=== PATIENT | female | born 1945 | race Caucasian/White ===

== ENCOUNTER 2018-08-19 13:34 | Emergency (ER) | payer MEDICARE ==
[~2018-08-19] VITALS: Ht 160 cm; Wt 52.3 kg
[~2018-08-19 13:34] MED LIST: ASPIRIN E.C. 8181 MG PO; CALCIUM + D 6001 TA1 PO; DOXYCYCLINE 10100 MG PO; FERROUS SU325 MG/TAB PO; FOLIC ACID 40400 MCG PO; LASIX 20MG TABL20 MG PO; LIPITOR 10MG10 MG PO; LOPRESSOR 225 MG/TAB PO; NORCO 325 MG-51 TAB PO; OMNICEF 300MG300 MG PO; PRILOSEC 20MG20 MG PO; TYLENOL 325MG325 MG PO; TYLENOL EXTRA500 M1 PO; VENTOLIN0.09 MG IH; VITAMIN C PURE500 MG PO; VITAMIN C500 MG PO; ZESTRIL2.5 MG PO
[2018-08-19 13:40] VITALS: TEMP 99.6
[2018-08-19] MEDS ORDERED: NORCO 325 MG-51 TAB PO (19:03)
[2018-08-19 19:54] VITALS: BP 105/87; PULSE 76
== END 2018-08-19 19:54 | disposition home or self-care (01) ==
LOC: COL.ER 13:34
DX: S72.111A Displaced fracture of greater trochanter of right femur, initial encounter for closed fracture (principal); F17.210 Nicotine dependence, cigarettes, uncomplicated; Z79.82 Long term (current) use of aspirin; Z96.653 Presence of artificial knee joint, bilateral; W18.30XA Fall on same level, unspecified, initial encounter

== ENCOUNTER 2020-02-10 11:47 | Inpatient (IN) | payer MEDICARE ==
[~2020-02-10] VITALS: Ht 162.6 cm; Wt 49.9 kg
[2020-02-10 12:40] LABS: BASO # 0.1 (0.0-0.2); BASO % 0.7 % (0.0-2.0); EOS % 0.1 % (0-4.0); GRAN # 6.1 (1.4-6.5); GRAN % 80.4 % (42.2-75.2); HEMOGLOBIN 13.2 g/dl (12.5-16.0); LYMPH # 0.9 (1.2-3.4); LYMPH % 11.5 % (20.0-51.0); MEAN CELL VOLUME 93 fl (80.0-100.0); MEAN CORPUSCULAR HEMOGLOBIN 31 pg (27.0-31.0); MEAN CORPUSCULAR HGB CONC 33 g/dl (33.0-37.0); MEAN PLATELET VOLUME 10.6 fl (7.4-10.4); MONO # 0.5 (0.1-0.6); MONO % 6.4 % (1.7-9.3); PLATELET COUNT 239 K/mm3 (130-400); REDCELL DISTRIBUTION WIDTH-CV 14.3 % (11.5-14.5)
[2020-02-10 12:41] LABS: INR 1.1 (0.8-3.0)
[2020-02-10 12:44] LABS: PARTIAL THROMBOPLASTIN TIME 29.5 SECONDS (26.0-37.0)
[2020-02-10 12:51] LABS: C-REACTIVE PROTEIN 0.9 mg/dL (0.0-0.9); CALCIUM 8.8 mg/dL (8.4-10.2); CREATININE, serum 0.57 (0.52-1.25); POTASSIUM 3.8 mmol/L (3.4-5.0); TOTAL PROTEIN 6.4 gm/dL (6.4-8.2)
[2020-02-10 13:00] LABS: TROPONIN-I 0.013 ng/mL (0.000-0.035)
[2020-02-10 16:06] LABS: COLLECTION METHOD CLEAN CATCH
[2020-02-10 16:23] LABS: MUCOUS Present /lpf; PH 5 (5-8); SQUAMOUS EPITHELIAL 0-2 /hpf; URINE APPEARANCE Clear; URINE BACTERIA None Seen /hpf; URINE BILIRUBIN Negative (NEGATIVE); URINE BLOOD Negative (NEGATIVE); URINE COLOR Straw; URINE GLUCOSE Negative (NEGATIVE); URINE KETONE Negative (NEGATIVE); URINE LEUKOCYTE ESTERASE Negative (NEGATIVE); URINE NITRATE Negative (NEGATIVE); URINE PROTEIN(semi-quant) Negative (NEGATIVE); URINE RBC 0-2 /hpf; URINE UROBILINOGEN Negative (NEGATIVE)
[2020-02-10 19:18] VITALS: BP 93/74; PULSE 79; TEMP 97.3
[2020-02-10 19:26] VITALS: BP 93/74; PULSE 78; TEMP 97.3
--- NOTE | 2020-02-10 19:28 | NUR ---
Initial assessments complete, Pt resting confortably in the room Pt needs met.
--- NOTE | 2020-02-10 19:30 | NUR ---
Received report from Matthew. Seen patient awake, lying in bed. She is alert, oriented and independent. She's on O2 at 2lpm via NC. She denies pain. Her right leg is more swollen than her left. Call light within reach.
[2020-02-10 20:37] VITALS: BP 79/64
--- NOTE | 2020-02-10 20:37 | NUR ---
Patient's blood pressure was low awhile ago. Rechecked her blood pressure and it was 79/64. Removed her nitroglycerin ointment paper in her chest. Did the orthostatic blood pressure and it was 147/104 in sitting position and 136/106 in standing. Patient denies dizziness, lightheadedness or difficulty of breathing. She said she feels fine and okay. Informed her that she needs to call us if she needs to go to the restroom given that she has low blood pressure right now.
[2020-02-10 20:38] VITALS: BP 147/104
[2020-02-10 20:39] VITALS: BP 136/106
--- NOTE | 2020-02-10 20:56 | NUR ---
This nurse called Surekha SPIVEY informing her of the hypotension episode and that I removed her nitrolycerin. She agreed on removing the nitroglycerin and she put an order to hold that. She said re-check again the blood pressure by mignight and update her since patient is asymptomatic now.
[2020-02-10 22:25] VITALS: BP 89/55
--- NOTE | 2020-02-10 22:25 | NUR ---
Blood pressure taken and it was 89/55. Update Surekha via phone call and says to check on again by midnight.
[2020-02-11] VITALS (10 sets, daily range): BP systolic 84–111; BP diastolic 50–74; PULSE 74–95; TEMP 97.2–98
--- NOTE | 2020-02-11 00:23 | NUR ---
This nurse called Surekha to update her that patient's blood pressure is 85/54. She said she will take a look at the patient and assess her if she needs to give her a bolus. Surekha then said to continue to monitor the patient since she's asymptomatic and she feels better with the diuresing that we're doing to her.
--- NOTE | 2020-02-11 07:30 | NUR ---
PT PLEASANT, AOX4, DENIES PAIN OR DISCOMFORT, DENIES DIZZINESS, PT VITALS REVIEWED, HELD BP MEDS AND LASIX DUE TO LOW SYSTOLIC. OTHER MEDS GIVEN, ASSESSMENT PERFORMED. BLE PITTING EDEMA PRESENT, PULSES STRONG, ON 2L NC BASELINE, NO OTHER NEEDS AT THIS TIME.
[2020-02-11 07:35] LABS: BASO % 0.7 % (0.0-2.0); EOS % 0.7 % (0-4.0); GRAN # 4.4 (1.4-6.5); GRAN % 75.2 % (42.2-75.2); HEMOGLOBIN 11.9 g/dl (12.5-16.0); LYMPH # 0.8 (1.2-3.4); LYMPH % 14.5 % (20.0-51.0); MEAN CELL VOLUME 92 fl (80.0-100.0); MEAN CORPUSCULAR HEMOGLOBIN 30 pg (27.0-31.0); MEAN CORPUSCULAR HGB CONC 33 g/dl (33.0-37.0); MEAN PLATELET VOLUME 10.3 fl (7.4-10.4); MONO # 0.5 (0.1-0.6); MONO % 8.6 % (1.7-9.3); PLATELET COUNT 198 K/mm3 (130-400); RED BLOOD COUNT 3.91 M/mm3 (4.10-5.30); REDCELL DISTRIBUTION WIDTH-CV 14.4 % (11.5-14.5)
[2020-02-11 07:37] LABS: HEMATOCRIT 35.9 % (37.0-47.0)
[2020-02-11 07:52] LABS: CALCIUM 8.3 mg/dL (8.4-10.2); CREATININE, serum 0.68 (0.52-1.25); MAGNESIUM 1.9 mg/dL (1.6-2.3)
[2020-02-11 07:57] LABS: TROPONIN-I 0.018 ng/mL (0.000-0.035)
[2020-02-11 08:13] LABS: POTASSIUM 3.7 mmol/L (3.4-5.0)
--- NOTE | 2020-02-11 14:06 | NUR ---
SW met with patient to complete intake. Patient states that she lives at home alone in [place], [place]. POC is daughter Katy [phone] [employer]. Patient stats that she does not utilize any DME and is independent with ADL's. Patient provides that her PCP is Dr. Harjinder Dinh, pharmacy is [facility], and she can afford her medications. Patient states that she would like to appoint her daughter as her DPOA-HC but would like to wait until 3 to confirm with daughter and obtain further information. Document left with patient to review. Patient provides that she does not utlize any home health services at this time and plans to return to her home upon DC. Patient states that she has not concerns about going home except she would like to get her breathing under control. SW will continue to follow.
--- NOTE | 2020-02-11 16:01 | NUR ---
oxygen inc to 5L, pt satting 88% on 2L. respiratory informed.
--- NOTE | 2020-02-11 16:18 | NUR ---
SW met with patient to complete DPOA-HC documentation. Documenation reviewed, signed and witnessed signature. Document copied for patient and original placed in chart. SW to continue to follow.
--- NOTE | 2020-02-11 16:37 | NUR ---
PT BEGAN TO HAVE DEC BP, 90 SYSTOLIC FIRST TIME, 84/55 THE SECOND TIME. PT ASYMPTOMATIC, ALERT AND TALKING, PT DENIES DIZZINESS, LASIX HELD, LEFT VOICMAIL FOR PHYSICIAN.
--- NOTE | 2020-02-11 16:51 | NUR ---
JEF REYNOLDS CONTACTED ABOUT LOW BP, ORDERED TO RECHECK IN AN HOUR AND CONTINUE TO HOLD LASIX AND BP MEDS. DR. HINDS RETURNED CALL AND SAID TO HOLD BP MEDS AND LASIX AND CONTINUE TO MONITOR.
--- NOTE | 2020-02-11 17:01 | NUR ---
PT ASYMPTOMATIC WITH HYPOTENSION. ORDERED TO RECHECK LATER, PT PLEASANT, DENIES PAIN OR DISCOMFORT, VISITOR AT BEDSIDE SOME OF SHIFT, HAS MET FREE WATER RESTRICTION, LIKES PAT, AOX4, PT CALLS WHEN SHE NEEDS TO GET UP DUE TO HYPOTENSION, O2 BACK TO 2.5L SATTING WELL. NO OTHER NEEDS.
--- NOTE | 2020-02-11 19:17 | NUR ---
Recieved report from Buffy. Seen patient awake, sitting in bed. She just finished eating her dinner. On O2 at 2lpm via NC. She denies pain. Call light within reach.
[2020-02-12] VITALS (21 sets, daily range): BP systolic 84–126; BP diastolic 37–97; PULSE 43–90; TEMP 97.4–98.5
--- NOTE | 2020-02-12 06:20 | NUR ---
Checked patient's blood pressure this morning before giving lasix. It was 126/97. No complains of pain. Call light within reach.
[2020-02-12 06:50] LABS: BASO % 0.4 % (0.0-2.0); EOS % 0.7 % (0-4.0); GRAN # 4.2 (1.4-6.5); GRAN % 73.6 % (42.2-75.2); HEMOGLOBIN 11.8 g/dl (12.5-16.0); LYMPH # 0.9 (1.2-3.4); LYMPH % 15.9 % (20.0-51.0); MEAN CELL VOLUME 92 fl (80.0-100.0); MEAN CORPUSCULAR HEMOGLOBIN 31 pg (27.0-31.0); MEAN CORPUSCULAR HGB CONC 34 g/dl (33.0-37.0); MEAN PLATELET VOLUME 10.4 fl (7.4-10.4); MONO # 0.5 (0.1-0.6); PLATELET COUNT 178 K/mm3 (130-400); RED BLOOD COUNT 3.81 M/mm3 (4.10-5.30); REDCELL DISTRIBUTION WIDTH-CV 14.2 % (11.5-14.5)
[2020-02-12 06:51] LABS: HEMATOCRIT 35.1 % (37.0-47.0)
[2020-02-12 07:04] LABS: CALCIUM 8.3 mg/dL (8.4-10.2); CREATININE, serum 0.74 (0.52-1.25); POTASSIUM 3.4 mmol/L (3.4-5.0)
--- NOTE | 2020-02-12 12:19 | NUR ---
Patient alert, denies any pain post heart cath. SBP 87/55. heart cath was accessed through right radial. site currently have compression band with 13mL. Patient resting in bed.
--- NOTE | 2020-02-12 12:57 | NUR ---
Initial visit; Patient thanked Recreation Manager for looking in on her though declined spiritual care.
--- NOTE | 2020-02-12 15:50 | NUR ---
Clarifying Plant Operator met with the patient to review the discharge plan of returning home with no services. The patient is independent and works 8 hours at week at [employer]. The patient will drive herself home. The patient's , Stevan recently . He daughter, Katy #[phone] is her support and DPOA-HC. RAFAL contacted Katy and she was in agreeance with the disharge plan. The patient is currenlty on oxygen and may need it at discharge. RAFAL collaborated the above information with the patient's nurse.
--- NOTE | 2020-02-12 17:45 | NUR ---
Patient alert and oriented. denies any pain. pyrotechnist report <20%EF. heart cath was completed, no blockage was found. heart cath was accessed through right radial. 13mL was deflated from radial compression. No bleeding or edema. Patient resting in bed.
--- NOTE | 2020-02-12 19:05 | NUR ---
Received report from [facility]. Seen patient awake, lying in bed. She is alert and oriented. Right radial incision from heart cath is covered with bandaid, clean, dry and intact. She denies pain. Call light within reach.
--- NOTE | 2020-02-12 20:15 | NUR ---
Dressing on her INT on left AC has some dry blood. Dressing was changed. Offered to patient if I can change her bed sheets and blankets now but she refused saying she might go home tomorrow so she's fine with what she has right now.
[2020-02-13] VITALS (11 sets, daily range): BP systolic 78–116; BP diastolic 5–92; PULSE 42–96; TEMP 97.4–98.6
--- NOTE | 2020-02-13 06:03 | NUR ---
Patient had uneventful night. She denies pain. Right radial site is clean, dry and intact. Call light within reach.
--- NOTE | 2020-02-13 06:34 | NUR ---
Patient's blood pressure is 95/54. Will not give Lasix as it may cause her blood pressure to go down even more.
[2020-02-13 07:02] LABS: BASO % 0.6 % (0.0-2.0); EOS # 0.1 (0.0-0.7); EOS % 0.9 % (0-4.0); GRAN # 4.8 (1.4-6.5); GRAN % 74.4 % (42.2-75.2); HEMOGLOBIN 11.8 g/dl (12.5-16.0); LYMPH # 0.9 (1.2-3.4); MEAN CELL VOLUME 91 fl (80.0-100.0); MEAN CORPUSCULAR HEMOGLOBIN 30 pg (27.0-31.0); MEAN CORPUSCULAR HGB CONC 33 g/dl (33.0-37.0); MEAN PLATELET VOLUME 10.5 fl (7.4-10.4); MONO # 0.6 (0.1-0.6); MONO % 9.8 % (1.7-9.3); PLATELET COUNT 181 K/mm3 (130-400); RED BLOOD COUNT 3.92 M/mm3 (4.10-5.30)
--- NOTE | 2020-02-13 07:05 | NUR ---
Pt alert/oriented in recliner. Telle, O2 @4L, lungs clear in upper lobes bases deminished with wheezing. No SOB noted @ rest, pt has productive cough. Rt radial dressing clean, dry, and intact. Lt a.c INT intact without redness. 2+ edema BLE. Pt denies pain.
[2020-02-13 07:06] LABS: HEMATOCRIT 35.6 % (37.0-47.0)
[2020-02-13 07:16] LABS: CALCIUM 7.9 mg/dL (8.4-10.2); CREATININE, serum 0.7 (0.52-1.25); POTASSIUM 3.5 mmol/L (3.4-5.0)
--- NOTE | 2020-02-13 09:56 | NUR ---
An exercise oximetry was ordered for the patient.
--- NOTE | 2020-02-13 12:45 | NUR ---
The patient qualifies for oxygen. Traffic Clerk met with the patient to discuss DME companies that could supply her oxygen. She chose [facility]. RAFAL faxed referral. RAFAL presented the IM form to the patient. She understood and signed the form. A copy was provided to the patient and the original was placed in the chart.
--- NOTE | 2020-02-13 17:14 | NUR ---
Patient is alert and oriented, denies any pain. RT completed exercise oximetry with patient. Patient was qualified for 2L O2 at discharge. Lasix is currently on hold because patient's serum bicarbonate is 36. patient on 2L 02 with 95%-97% oxygen saturation. Patient ambulate around with physical therapy. Per hospitalist view, Patient might be discharging on the 02/14/20.
--- NOTE | 2020-02-13 20:30 | NUR ---
Initial shift assessment done- denies pain/SOB, on 2L/nc-- pt states she is going home tomorrow, Tele on, VSS. Up in her room on her own- steady on feet
[2020-02-14 03:46] VITALS: BP 84/56; PULSE 50; TEMP 97.6
--- NOTE | 2020-02-14 05:06 | NUR ---
Quiet night- B/P remains borderline low- asymptomatic--has been resting well
[2020-02-14 06:45] LABS: BASO # 0.1 (0.0-0.2); BASO % 0.7 % (0.0-2.0); EOS # 0.1 (0.0-0.7); GRAN # 5.3 (1.4-6.5); GRAN % 72.9 % (42.2-75.2); HEMATOCRIT 38.7 % (37.0-47.0); HEMOGLOBIN 12.7 g/dl (12.5-16.0); LYMPH # 1.1 (1.2-3.4); LYMPH % 14.7 % (20.0-51.0); MEAN CELL VOLUME 92 fl (80.0-100.0); MEAN CORPUSCULAR HEMOGLOBIN 30 pg (27.0-31.0); MEAN CORPUSCULAR HGB CONC 33 g/dl (33.0-37.0); MEAN PLATELET VOLUME 10.5 fl (7.4-10.4); MONO # 0.8 (0.1-0.6); MONO % 10.4 % (1.7-9.3); PLATELET COUNT 191 K/mm3 (130-400); RED BLOOD COUNT 4.22 M/mm3 (4.10-5.30)
[2020-02-14 07:07] LABS: CALCIUM 8.6 mg/dL (8.4-10.2); CREATININE, serum 0.66 (0.52-1.25); POTASSIUM 4.2 mmol/L (3.4-5.0)
--- NOTE | 2020-02-14 07:15 | NUR ---
Pt laying in bed alert/oriented. O2 @ 2L/NC. Lung sounds diminiushed w/wheezing and productive cough. No SOB at rest. Edema to BLE 1+. Denies c/o pain.
[2020-02-14 07:30] VITALS: BP 93/72; PULSE 93; TEMP 98.7
[2020-02-14] MEDS ORDERED: OXYGEN NASAL.CANN (07:57)
--- NOTE | 2020-02-14 08:50 | NUR ---
PT DENIES PAIN OR DISCOMFORT, EXCITED FOR DISCHARGE, VERBALIZES UNDERSTANDING ON FLUID RESTRICTION AND DAILY WEIGHTS. PT PLEASANT, AOX4, VITALS REVIEWED, MEDICATIONS GIVEN, ASSESSMENT PERFORMED, NO OTHER NEEDS AT THIS TIME.
[2020-02-14] MEDS ORDERED: LASIX 20MG TABL20 MG PO (08:53)
--- NOTE | 2020-02-14 10:14 | NUR ---
SW update: Sent faxed orders for O2 to [facility]. Confirmed that they recieved the order and will delivery to the hospital for patient.
[2020-02-14 10:33] VITALS: BP 91/47; PULSE 85; TEMP 98.6
--- NOTE | 2020-02-14 13:48 | NUR ---
Met with pt for CHF education. She reports that she was given the CHF binder earlier in her stay and she read through it on her own. Pt described her understanding of her CHF. She explained that she was diagnosed about 4-6 years ago and has followed a low-sodium diet since. She admits that with the recent passing of her she has been eating more "TV dinners". She was unsure what medications she would be going home on but we did discuss the common meds for people with CHF. Discussed activity level and the importance of being patient with herself when she first leaves the hospital. Pt was provided with the Heart Failure Zone sheet. Discussed S&S to watch for and when to contact her provider or return to ER. Pt verbalized understanding and denied any other questions or concerns at this time. Pt agreeable to have CM f/u with her at discharge.
--- NOTE | 2020-02-14 14:47 | NUR ---
discharge education provided, iv dc'd, pt belongings gathered, tele removed, pt got dressed, escorted out via wheelchair, no other needs.
== END 2020-02-14 14:50 | disposition home or self-care (01) | DRG 286 ==
LOC: COL.ER 11:47 → MEDICAL 14:43
PROVIDERS: Emergency Medicine; Physician Assistant; ADMIT Internal Medicine
PROC: 4A023N7 Measurement of Cardiac Sampling and Pressure, Left Heart, Percutaneous Approach (ICD-10-PCS; principal; 2020-02-12)
PROC: B2111ZZ Fluoroscopy of Multiple Coronary Arteries using Low Osmolar Contrast (ICD-10-PCS; 2020-02-12)
DX: I50.23 Acute on chronic systolic (congestive) heart failure (principal); J96.01 Acute respiratory failure with hypoxia; E43 Unspecified severe protein-calorie malnutrition; I47.1 Supraventricular tachycardia; E87.1 Hypo-osmolality and hyponatremia; I42.8 Other cardiomyopathies; E87.3 Alkalosis; Z68.1 Body mass index [BMI] 19.9 or less, adult; F17.210 Nicotine dependence, cigarettes, uncomplicated; J44.9 Chronic obstructive pulmonary disease, unspecified; Z66 Do not resuscitate; M19.90 Unspecified osteoarthritis, unspecified site; E78.5 Hyperlipidemia, unspecified
CPT/HCPCS: 99222-AI; 99232-AI; 99239; J1644; J1650; J1940; Q9967

== ENCOUNTER → 2020-02-29 | Outpatient (CLI) | payer MEDICARE ==
[~2020-02-29] MED LIST changes: +OXYGEN NASAL.CANN
== END ==
LOC: COL.PUL 10:59
DX: J44.9 Chronic obstructive pulmonary disease, unspecified (principal); F17.210 Nicotine dependence, cigarettes, uncomplicated

== ENCOUNTER 2020-04-04 18:25 | Inpatient (IN) | payer MEDICARE ==
[~2020-04-04] VITALS: Ht 162.6 cm; Wt 52.2 kg
[2020-04-04] VITALS (11 sets, daily range): BP systolic 86–111; BP diastolic 54–83; PULSE 97–103; TEMP 97.3–97.9
[~2020-04-04 18:25] MED LIST changes: -DIGITEK0.25 MG PO; -LIPITOR 40MG TA40 MG PO; -PLAVIX 75MG TAB75 MG PO; -RT Anoro Ellipta IH; -TYLENOL 500MG500 MG PO
--- NOTE | 2020-04-04 19:06 | NUR ---
Arrived to medical floor at this time. Dr. Causey notified of patient arrival.
--- NOTE | 2020-04-04 19:24 | NUR ---
Orders from Dr. Causey verbal over the phone. Fluid restriction 1 liter lasix gtt 10mg/hr daily BMP strict I&O Digoxin 0.25mg now, in the morning, and afternoon approx 6 hours apart then daily after Dobutamine gtt 5mcg/kg/min for 24 hours. If BP goes above [address] nitro patch 0.3. low NA diet continue all home medications minus diuretics
--- NOTE | 2020-04-04 20:00 | NUR ---
Assessment complete. Lungs diminished. Heart sounds normal. Bowels active x4. Pulses present throughout. Bilateral lower extremity edema +2. Reported right shoulder/neck pains. Will provide with PRN tylenol. Patient BP monitored Q15 mins with start of dobutamine. All questions answered. Orientated to medical floor. Will monitor.
[2020-04-04] MEDS ORDERED: TYLENOL 500MG500 MG PO (20:07)
[2020-04-04 20:21] LABS: TROPONIN-I 0.04 ng/mL (0.000-0.035)
--- NOTE | 2020-04-04 20:30 | NUR ---
Dr. Causey notified of elevated troponin. No further troponin draws until morning. Add lovenox 30mg daily
[2020-04-04 21:26] LABS: CALCIUM 8.4 mg/dL (8.4-10.2); CREATININE, serum 0.79 (0.52-1.25); POTASSIUM 4.2 mmol/L (3.4-5.0)
--- NOTE | 2020-04-04 22:35 | NUR ---
Daughter Katy called for an update. Updated regarding patient. All questions answered at this time.
--- NOTE | 2020-04-04 23:43 | NUR ---
Per telemetry patient had 15 second run of SVT with vtach. Patient asymptomatic. Recently went to restroom. VS stable on dobutamine. Spoke with Dr. Causey, patient has ICD in place. Continue to monitor. Also place plasencia.
[2020-04-05] VITALS (25 sets, daily range): BP systolic 83–116; BP diastolic 43–69; PULSE 91–103; TEMP 97.2–98.5
--- NOTE | 2020-04-05 00:10 | NUR ---
Marinelli placed at this time. Tolerated well.
--- NOTE | 2020-04-05 03:44 | NUR ---
Patient BP consistently 80s systolic. Patient urinate 900ml earlier in night. Marinelli inserted at midnight at has output of 1200ml now. Concerned with high dosing of lasix at 10mg/hr. Spoke with Dr. Causey, "half lasix drip." Clarified to decrease to 5mg/hr. Will change.
--- NOTE | 2020-04-05 06:22 | NUR ---
Patient had x1 episode of SVT/v tach. Dr. Causey notified. Also decreased lasix gtt to 5mg/hr. Otherwise uneventful night. Resting in bed this AM. Call light in reach.
--- NOTE | 2020-04-05 07:03 | NUR ---
Report given to SAM Jasmine
--- NOTE | 2020-04-05 08:30 | NUR ---
Bedside shift report received. pt AOX4. awake and resting in bed. call light within reach. no needs during report. VS machine on pt set on intervals. all values SBP <120
--- NOTE | 2020-04-05 09:32 | NUR ---
Morning meds given. PT AOX4. denies pain. requested to be ambulated in room for a few steps due to sore bottom. no open areas. pt bony wit pink bottom. trace narcisa le edema. lasix and dobutamine gtt infusng. no issues with IVs. call light within reach. plasencia intact and draining. repositioned with pillows
[2020-04-05 09:33] LABS: CREATININE, serum 0.74 (0.52-1.25); POTASSIUM 3.4 mmol/L (3.4-5.0)
--- NOTE | 2020-04-05 11:37 | NUR ---
Initial visit; Patient very pleasant and thanked Flat Knitter for looking in on her and offering Spiritual Care.
--- NOTE | 2020-04-05 11:53 | NUR ---
Lockmaker met with patient to discuss discharge planning. Patient lives alone in [place] and sees Dr. Dinh for primary care. Patient obtains medications from [facility] with no difficulties. Patient normally picks up her own medications, but if for some reason she can't she reports her daughter, Katy (ph#[phone]) can pick them up for her. Patient has a cane and walker at home but only uses them periodically as she needs them. Patient also wears oxygen at night from [facility]. Patient reports independence with ADLS and plans to return home upon discharge. Patient has Advance Directives in EMR which designate her daughter, Katy Carvalho as DPOA-HC. SW contacted patient's daughter, Katy to review discharge plan. Katy advised she has been worried about patient and it's been hard for her to not be here with her. Katy is in agreement with patient returning home at discharge. Katy lives locally and is supportive of patient. SW spoke with RN about ordering PT/OT. SW will continue to follow for discharge needs.
--- NOTE | 2020-04-05 12:01 | NUR ---
HOURLY VITALS DONE. PT FOUND ON ROOM AIR WITH SAT 88%. STATES FORGOT TO PUT CANULA BACK ON AFTER CLEARING SINUSES. BACK ON OXYGEN 2L AND 95%
--- NOTE | 2020-04-05 14:54 | NUR ---
PT attempted to sit on commode for a period of time due to passing gas without success.last BM yesterday before doc appt in AM
--- NOTE | 2020-04-05 15:58 | NUR ---
PT seen by Dr Causey this afternoon. plan is for pt to be seen by pulmonology. continue drips and change to PO in AM then dc plasencia then dc home. narcisa LE edema now trace to 1+. pt reports feeling great and hopes to go home tomorrow. CXR ordered by Dr Chand. PT/OT consulted. drips intact. urine clear/yellow. denies pain. Q1hr vitals normal. Dr Causey called for low potassium and pt started on replcament protocol. no new concers this shift.
--- NOTE | 2020-04-05 20:52 | NUR ---
Resting in bed. Assessment complete. Lungs clear. Heart sounds normal. Bowels active x4. Pulses present throughout. No edema noted. IV to right and left forearm infusing dobutamine and lasix without complications at this time. Denies pain. Denies needs at this time. Call light in reach. Will continue to monitor.
--- NOTE | 2020-04-05 22:10 | NUR ---
Reported shoulder pain 5/10. Given PRN tylenol. Denies other needs. Call light in reach.
[2020-04-06] VITALS (12 sets, daily range): BP systolic 82–112; BP diastolic 35–77; PULSE 52–105; TEMP 97.7–98.6
--- NOTE | 2020-04-06 01:00 | NUR ---
In patient room for midnight rounds at 0033. Patient noted to have left sided face droop with left side weakness. Patient noted to have aphasia. Dr. Gomez called. Consult hospitalist and neuro. Jenn SPIVEY in room to see patient. Stat labs and CT ordered. Patient was taken to CT and returned to floor. Will continue to monitor.
--- NOTE | 2020-04-06 01:30 | NUR ---
Ambulated patient with Jenn PIPE FITTER MARINE to assess gait. Dr. Wong contacted. No new orders at this time.
[2020-04-06 01:44] LABS: BASO # 0.1 (0.0-0.2); BASO % 0.6 % (0.0-2.0); EOS # 0.1 (0.0-0.7); EOS % 0.7 % (0-4.0); GRAN # 6.3 (1.4-6.5); HEMOGLOBIN 12.3 g/dl (12.5-16.0); LYMPH # 1.2 (1.2-3.4); LYMPH % 14.4 % (20.0-51.0); MEAN CELL VOLUME 85 fl (80.0-100.0); MEAN CORPUSCULAR HEMOGLOBIN 28 pg (27.0-31.0); MEAN CORPUSCULAR HGB CONC 34 g/dl (33.0-37.0); MEAN PLATELET VOLUME 9.3 fl (7.4-10.4); MONO # 0.8 (0.1-0.6); MONO % 9.1 % (1.7-9.3); PLATELET COUNT 256 K/mm3 (130-400); RED BLOOD COUNT 4.33 M/mm3 (4.10-5.30)
[2020-04-06 01:52] LABS: HEMATOCRIT 36.7 % (37.0-47.0)
[2020-04-06 02:01] LABS: ALBUMIN 3.3 gm/dL (3.5-5.0); CALCIUM 7.9 mg/dL (8.4-10.2); CREATININE, serum 0.67 (0.52-1.25); MAGNESIUM 1.9 mg/dL (1.6-2.3); POTASSIUM 3.6 mmol/L (3.4-5.0); TOTAL PROTEIN 5.8 gm/dL (6.4-8.2)
--- NOTE | 2020-04-06 04:32 | NUR ---
Resting in bed. Left side facial droop persist. Difficulty with swallowing plavix. Speech eval added per Jenn. Denies other needs at this time. Call light in reach.
--- NOTE | 2020-04-06 06:26 | NUR ---
Patient facial droop continues with swallowing difficulty. Patient on dobutamine and lasix gtts. Denies needs this AM. Call light in reach.
[2020-04-06 06:45] LABS: CALCIUM 8.2 mg/dL (8.4-10.2); CREATININE, serum 0.64 (0.52-1.25); POTASSIUM 3.3 mmol/L (3.4-5.0)
--- NOTE | 2020-04-06 07:09 | NUR ---
Report given to SAM Coates
--- NOTE | 2020-04-06 09:30 | NUR ---
Patient sitting up in bed, A&Ox3. VSS 2L NC O2. No reported SOB. IV CDI, fluids infusing. Denies pain and discomfort. Right side drooping. Patient instructed not to eat without nursing staff to assess and monitor. Patient verbalized an understanding. Q1 VS monitored dobutamine 7.8ml/hr. No further needs expressed from the patient. Call light within reach. Bed alarm on
[2020-04-06 10:07] LABS: CALCIUM 8.3 mg/dL (8.4-10.2); CREATININE, serum 0.61 (0.52-1.25); POTASSIUM 3.4 mmol/L (3.4-5.0)
--- NOTE | 2020-04-06 17:54 | NUR ---
Patient has had an uneventful day. A&Ox3. VSS 2L NC O2. No reported SOB, pain or discomfort. IV CDI. Right side facial drooping improving and patient stating numbness going away. Patients diest changed to mechanical soft and tolerating well. No complaints of coughing or having trouble swallowing. Nursing staff instructed patient to take small bites and sips and sit upright. No further needs expressed from the patient. Call light within reach
--- NOTE | 2020-04-06 18:23 | NUR ---
Marinelli removed, patient tolerated well. Pericare provided before and after removal. 10ml sterile water removed from the balloon, tip intact. Patient instructed to call nursing staff when needing to use the bathroom. Patient verbalized an understanding. Call light within reach. Bed alarm on
--- NOTE | 2020-04-06 20:07 | NUR ---
Resting in bed. Assessment complete. Right lung and left upper lobe diminished. Heart sounds normal. Bowels active x4. Pulses present throughout. Bilateral lower extremity edema +1. INT right and left forearms without complications. Reports 6/10 right shoulder pain and "heart burn." Order obtained for tums and provided with PRN tylenol. Denies other needs at this time. Call light in reach.
[2020-04-07] VITALS (17 sets, daily range): BP systolic 83–95; BP diastolic 44–70; PULSE 72–99; TEMP 97.3–98.2
--- NOTE | 2020-04-07 00:06 | NUR ---
Up to restroom and returned to bed. Call light in reach.
--- NOTE | 2020-04-07 00:14 | NUR ---
Patient BP low systolic, 89. MAP 68. Per Jenn DRUGLESS DOCTOR closely monitor with Q1H BP checks.
--- NOTE | 2020-04-07 02:25 | NUR ---
Patient BP 84 systolic. Per Jenn SPIVEY contact Dr. Causey. Per Dr. Padilla kim with pressure, do not call unless below 70 and if patient sleeping do not check. Will monitor
--- NOTE | 2020-04-07 05:12 | NUR ---
Patient had BP systolic in the 80 during in night. Otherwise uneventful night. Resting in bed this AM.
--- NOTE | 2020-04-07 06:48 | NUR ---
Report given to SAM Barillas
--- NOTE | 2020-04-07 09:43 | NUR ---
PATIENT ASSESSMENT COMPLETED. SHE IS ASSISTED TO THE RESTROOM AND IS UNSTEADY ON HER FEET. UA COLLECTED PER ORDERS. SHE DENIES ANY PAIN OR OTHER QUESTIONS AT THIS TIME
[2020-04-07 09:53] LABS: CALCIUM 8.7 mg/dL (8.4-10.2); CREATININE, serum 0.7 (0.52-1.25); POTASSIUM 3.7 mmol/L (3.4-5.0)
[2020-04-07 11:09] LABS: COLLECTION METHOD IN
[2020-04-07 11:26] LABS: MUCOUS Present /lpf; PH 7 (5-8); URINE APPEARANCE Hazy; URINE BACTERIA None Seen /hpf; URINE BILIRUBIN Negative (NEGATIVE); URINE BLOOD Negative (NEGATIVE); URINE COLOR Yellow; URINE GLUCOSE Negative (NEGATIVE); URINE KETONE Negative (NEGATIVE); URINE LEUKOCYTE ESTERASE 1+ (NEGATIVE); URINE NITRATE Negative (NEGATIVE); URINE PROTEIN(semi-quant) 1+ (NEGATIVE); URINE UROBILINOGEN >=4.0 mg/dL (NEGATIVE)
--- NOTE | 2020-04-07 13:30 | NUR ---
PATIENT THORACENTESIS DONE BY DR. العلي. PATIENT TOLERATES WELL. VS STABLE
[2020-04-07 14:04] LABS: GLUCOSE,PLEURAL FLUID 122 mg/dL; PLEURAL FLUID RBC 6000 /mm3 (0-0); PLEURAL FLUID WBC 936 /mm3
[2020-04-07 14:09] LABS: PLEURAL FLUID COLOR AMBER
[2020-04-07 14:10] LABS: PLEURAL FLUID APPEARANCE CLEAR
--- NOTE | 2020-04-07 16:14 | NUR ---
PATIENT RESTING IN BED. NO QUESTIONS AT THIS TIME.
--- NOTE | 2020-04-07 17:22 | NUR ---
patient up in the bed eating supper. She denies any needs after going to the restroom. She ambulates well with front wheeled walker with standby assist.
--- NOTE | 2020-04-07 20:00 | NUR ---
Report received, assumed care for hotel night auditor. Assessment complete. A&Ox3. Denies pain/nausea/shortness of breath. VS [id number]-[id number] aware. Tele showing NSR with occasional PVCs. O2@2L/[id number] sat in the 90s. Plan of care discussed for this shift to include HS meds/O2 as needed/calling for questions/concerns. Verbalizes understanding/denies questions/concerns. Call light in reach. Will monitor.
--- NOTE | 2020-04-08 01:02 | NUR ---
Assisted to bathroom-stand by/gait belt/walker. Gait steady. Tolerated well. Will monitor.
[2020-04-08 03:46] VITALS: BP 94/60; PULSE 84; TEMP 98.6
[2020-04-08 04:55] VITALS: BP 90/63; PULSE 94
--- NOTE | 2020-04-08 04:55 | NUR ---
Tele called with reports of an 8 beat of irregular rhythm-vitals taken-BP 90s/60s and apical pulse of 93. Denies chest pain/shortness of breath/nausea. Cardiology aware. Will monitor
--- NOTE | 2020-04-08 06:05 | NUR ---
environmental test technician called with reports of SVT with PVCs/couplets. Denies chest pain/nasuea/shortness of breath. VS stable BP-90s/60s, pulse [address] Causey notified-no new orders received. Will continue to monitor.
--- NOTE | 2020-04-08 07:00 | NUR ---
Report with SAM Navarrete. Pt resting in bed with eyes closed, resp even and unlabored. Call light in reach.
[2020-04-08 07:23] LABS: CALCIUM 8.4 mg/dL (8.4-10.2); CREATININE, serum 0.64 (0.52-1.25); POTASSIUM 4.1 mmol/L (3.4-5.0)
[2020-04-08 07:24] VITALS: BP 93/53; PULSE 93; TEMP 97.8
--- NOTE | 2020-04-08 08:00 | NUR ---
Assessment complete. Pt sitting up in bed, A&O x 3. O2 at 1 L/min via NC. Physical assessment unremarakable. Saline lock IV's to bilat forearms without s/s of complications. Plan for discharge per verbal report from provider. Pt verbalizes understanding of waiting for discharge orders. No further needs reported. Call light in reach.
[2020-04-08 09:34] LABS: CALCIUM 8.5 mg/dL (8.4-10.2); CREATININE, serum 0.8 (0.52-1.25); POTASSIUM 4.1 mmol/L (3.4-5.0)
[2020-04-08] MEDS ORDERED: PLAVIX 75MG TAB75 MG PO (10:59)
[2020-04-08] MEDS ORDERED: DIGITEK0.25 MG PO (11:00)
[2020-04-08] MEDS ORDERED: LIPITOR 40MG TA40 MG PO (11:00)
[2020-04-08] MEDS ORDERED: LASIX 20MG TABL20 MG PO (11:00)
[2020-04-08] MEDS ORDERED: RT Anoro Ellipta IH (11:01)
[2020-04-08 11:46] VITALS: BP 121/45; PULSE 65; TEMP 97.5
--- NOTE | 2020-04-08 11:56 | NUR ---
The patient is ready to d/c today. RAFAL met with the patient to review d/c plan and to discuss home health services. The patient confirms that she lives alone in [place]. RAFAL discussed home health and it's benefits. The patient reports that she is not interested in any home health at this time. She states that her daughter, Katy, and grandson check-in on her frequently throughout the day. She states that she feels comfortable returning home. RAFAL presented and read the IM form outloud to the patient. The patient verbalized understanding and gave RAFAL approval to sign the form on her behalf. RAFAL provided her with a copy. RAFAL then contacted and reviewed the d/c plan with the patient's daughter, Katy. Katy reports that she would like to get home health set up for the patient. RAFAL informed her of the different agencies and Katy chose [facility]. RAFAL contacted and faxed a referral and the patient's d/c orders to Elena at [facility]. SW awaiting their screen.
--- NOTE | 2020-04-08 13:04 | NUR ---
Post Anesthesia Room Nurse, Debbie, notified this SW that Elena at [facility] is able to accept the patient for services. The patient is to discharge back home today, 04/08, with home health services for penitentiary/PT/OT through [facility]. No additional needs at this time.
--- NOTE | 2020-04-08 16:45 | NUR ---
Discharge instructions reviewed with pt regarding new medications, follow-up appointments, and testing. Pt verbalizes understanding, will contact radiology to schedule tests d/t needing pacemaker information. Pt discharged home, escorted out of facility via WC accompanied by this nurse. Pt's grandson providing transport home.
== END 2020-04-08 17:10 | disposition home health service (06) | DRG 291 ==
LOC: MEDICAL 18:25
PROVIDERS: Internal Medicine; Internal Medicine Pulmonary Disease; Nurse Practitioner Family; ADMIT Internal Medicine Interventional Cardiology
PROC: 0W993ZZ Drainage of Right Pleural Cavity, Percutaneous Approach (ICD-10-PCS; principal; 2020-04-07)
DX: I50.23 Acute on chronic systolic (congestive) heart failure (principal); I63.9 Cerebral infarction, unspecified; J90 Pleural effusion, not elsewhere classified; I42.8 Other cardiomyopathies; E87.3 Alkalosis; J96.11 Chronic respiratory failure with hypoxia; J44.9 Chronic obstructive pulmonary disease, unspecified; R29.703 NIHSS score 3; R29.810 Facial weakness; E87.6 Hypokalemia; R47.81 Slurred speech; I95.9 Hypotension, unspecified; E04.1 Nontoxic single thyroid nodule; Z95.0 Presence of cardiac pacemaker
CPT/HCPCS: 99223; 99232-AI; J1250; J1650; J1940; Q9967

== ENCOUNTER → 2020-04-04 | Outpatient (CLI) | payer MEDICARE ==
[~2020-04-04] MED LIST changes: +DIGITEK0.25 MG PO; +LIPITOR 40MG TA40 MG PO; +PLAVIX 75MG TAB75 MG PO; +RT Anoro Ellipta IH; +TYLENOL 500MG500 MG PO
== END ==
LOC: ZCOL.LAB 18:16
DX: R06.02 Shortness of breath (principal)

== ENCOUNTER 2020-04-24 13:00 | Emergency (ER) | payer MEDICARE ==
[~2020-04-24] VITALS: Ht 162.6 cm; Wt 43.6 kg
[~2020-04-24 13:00] MED LIST changes: +DIGITEK0.25 MG PO; +LIPITOR 40MG TA40 MG PO; +PLAVIX 75MG TAB75 MG PO; +RT Anoro Ellipta IH; +TYLENOL 500MG500 MG PO
[2020-04-24 13:11] VITALS: BP 117/60; TEMP 98
[2020-04-24 14:55] VITALS: PULSE 92
== END 2020-04-24 14:55 | disposition home or self-care (01) ==
LOC: COL.ER 13:00
DX: S02.611A Fracture of condylar process of right mandible, initial encounter for closed fracture (principal); J44.9 Chronic obstructive pulmonary disease, unspecified; I25.10 Atherosclerotic heart disease of native coronary artery without angina pectoris; F17.210 Nicotine dependence, cigarettes, uncomplicated; Z79.02 Long term (current) use of antithrombotics/antiplatelets; Z79.82 Long term (current) use of aspirin; W19.XXXA Unspecified fall, initial encounter; Y92.009 Unspecified place in unspecified non-institutional (private) residence as the place of occurrence of the external cause

== ENCOUNTER → 2020-04-29 | Outpatient (CLI) | payer MEDICARE ==
[2020-04-29 10:40] VITALS: BP 136/69; PULSE 65; TEMP 98.2
== END ==
LOC: COL.ER 10:30
DX: Z48.02 Encounter for removal of sutures (principal)

== ENCOUNTER → 2021-02-13 | Outpatient (CLI) | payer MEDICARE | LOC: COL.RAD 12:56 | DX: Z12.2 Encounter for screening for malignant neoplasm of respiratory organs (principal); F17.210 Nicotine dependence, cigarettes, uncomplicated; Z95.0 Presence of cardiac pacemaker ==

== ENCOUNTER → 2022-08-17 | Outpatient (CLI) | payer MEDICARE | LOC: COL.RAD 14:00 | DX: F17.200 Nicotine dependence, unspecified, uncomplicated (principal) ==

== ENCOUNTER 2023-06-08 09:31 | Emergency (ER) | payer MEDICARE ==
[~2023-06-08] VITALS: Ht 160 cm; Wt 49.5 kg
[2023-06-08 09:32] VITALS: TEMP 98.9
[2023-06-08 10:30] LABS: BASO % 0.3 % (0.0-2.0); EOS % 0.3 % (0.0-4.0); GRAN # 6.7 K/mm3 (1.4-6.5); GRAN % 87.9 % (42.2-75.2); HEMATOCRIT 37.9 % (37.0-47.0); HEMOGLOBIN 13.4 g/dl (12.5-16.0); LYMPH # 0.3 K/mm3 (1.2-3.4); LYMPH % 4.5 % (20.0-51.0); MEAN CELL VOLUME 85 fl (80.0-100.0); MEAN CORPUSCULAR HEMOGLOBIN 30 pg (27-31); MEAN CORPUSCULAR HGB CONC 35 g/dl (33.0-37.0); MONO # 0.5 K/mm3 (0.1-0.6); MONO % 6.6 % (1.7-9.3); PLATELET COUNT 151 K/mm3 (130-400); RED BLOOD COUNT 4.46 M/mm3 (4.10-5.30); REDCELL DISTRIBUTION WIDTH-CV 12.9 % (11.5-14.5)
[2023-06-08 10:48] LABS: ALBUMIN 3.6 gm/dL (3.4-4.8); BILIRUBIN,TOTAL 0.7 mg/dL (0.2-1.2); CALCIUM 8.8 mg/dL (8.4-10.2); CREATININE, serum 0.63 mg/dL (0.57-1.11); POTASSIUM 3.3 mmol/L (3.5-4.5); TOTAL PROTEIN 6.2 gm/dL (6.2-8.1)
[2023-06-08 10:56] LABS: TROPONIN-I 0.125 ng/mL (0.00-0.033)
[2023-06-08] MEDS ORDERED: ENTRESTO 97 MG1 EACH PO (11:29)
[2023-06-08] MEDS ORDERED: TOPROL XL 25MG25 MG PO (11:29)
[2023-06-08] MEDS ORDERED: LANOXIN 0.25M0.25 MG PO (11:30)
[2023-06-08] MEDS ORDERED: PROAIR HFA0.09 MG/AC IH (12:57)
[2023-06-08 14:49] LABS: INR 1.1 (0.8-3.0); PROTHROMBIN TIME 11.5 SECONDS (9.7-12.8)
[2023-06-08 14:52] LABS: MAGNESIUM 1.8 mg/dL (1.6-2.6); PHOSPHOROUS 2.3 mg/dL (2.3-4.7)
[2023-06-08] MEDS ORDERED: TYLENOL 325MG325 MG PO (15:27)
--- NOTE | 2023-06-08 15:52 | NUR ---
spray worker was informed patient needs assistance with transportation. RN Melisa informed SW patient's house keys are with her grandson, Vishal and he is at work until late this evening. SW inquired about contact, daughter Katy. RN reports Katy was on the phone in the room. She works at [employer] and cannot leave to get her mother's house keys. Patient's grandson does not get off work until 8:30pm and does not have a break in between. Patient will have to wait and discharge at this time.
[2023-06-08 16:00] VITALS: BP 137/59; PULSE 70
== END 2023-06-08 16:21 | disposition home or self-care (01) ==
LOC: COL.ER 09:31 → MEDICAL 13:51 → COL.ER 16:21
PROVIDERS: Nurse Practitioner Family; Physician Assistant
DX: I21.4 Non-ST elevation (NSTEMI) myocardial infarction (principal); E87.6 Hypokalemia; R74.01 Elevation of levels of liver transaminase levels; F17.200 Nicotine dependence, unspecified, uncomplicated